=== PATIENT | male | born 1945 | race Caucasian/White ===

== ENCOUNTER 2017-11-03 08:42 | Day surgery (SDC) | payer OTHER ==
[2017-11-03] MEDS ORDERED: diphenhydrAMINE 25 MG CAP PO ONE ×2 (08:45→09:08)
[2017-11-03] MEDS ORDERED: FAMOTIDINE 20 MG TAB PO ONE (08:45)
[2017-11-03] MEDS ORDERED: NS 1,000 ML IV ONE (08:45)
[2017-11-03] MEDS ORDERED: DIAZEPAM 5 MG TAB PO ONE (08:45)
--- NOTE | 2017-11-03 09:04 | CPEKG ---
Heart Rate: 68 RR Interval: 882 P-R Interval: 200 QRSD Interval: 88 QT Interval: 400 QTC Interval: 426 P Canadian: 19 QRS Canadian: 25 T Wave Canadian: 78 EKG Severity - NORMAL ECG - EKG Impression: SINUS RHYTHM Electronically Signed By: Jensen Cornejo 04-Nov-2017 07:37:47
[2017-11-03] MEDS ORDERED: FAMOTIDINE 20 MG TAB ONE (09:08)
[2017-11-03] MEDS ORDERED: DIAZEPAM 5 MG TAB ONE (09:09)
[2017-11-03] MEDS ORDERED: ASPIRIN EC 325 MG TAB PO ONE (09:09)
[2017-11-03 09:19] LABS: PLATELET COUNT 233 10^3/uL (150-400)
[2017-11-03 09:28] LABS: INR 1.03 (0.83-1.16); PROTIME(PATIENT) 13.7 SEC (12.0-15.0)
[2017-11-03] MEDS ORDERED: LIDOCAINE 1% 300 MG/30 ML SDV ONE (10:10)
--- NOTE | 2017-11-03 10:10 | PDHPUP ---
History & Physical Update H&P update statement: This history and physical update is based on an assessment of the patient which was completed after admission or registration (within 24 hours), but prior to the surgery/procedure. H&P update: H&P reviewed & patient examined, no change in patient's condition since H&P completed
--- NOTE | 2017-11-03 10:10 | PDPROPOC ---
Sedation Plan of Care Sedation Plan of Care: vital signs stable, mental status noted, patient educated of risks, benefits, alternatives, patient can tolerate sedation ASA Classification: ASA 2 Planned drugs: fentanyl, midazolam Mallampati Score: Class 2 Mallampati Reference Image: Patient passed 3-3-2 rule?: Yes
[2017-11-03] MEDS ORDERED: MIDAZOLAM 2 MG/2 ML VIAL ONE (10:11)
[2017-11-03] MEDS ORDERED: IOPAMIDOL (ISOVUE-370) 150 ML BTL IV ONE (10:11)
[2017-11-03] MEDS ORDERED: fentaNYL 100 MCG/2 ML INJ ONE (10:11)
[2017-11-03] MEDS ORDERED: OXYCODONE/APAP 5/325 TAB PO PRN (11:02)
[2017-11-03] MEDS ORDERED: NITROGLYCERIN 0.4 MG BTL SL PRN (11:02)
[2017-11-03] MEDS ORDERED: ONDANSETRON 4 MG/2 ML VIAL IVP PRN (11:02)
[2017-11-03] MEDS ORDERED: ATROPINE SULFATE 1 MG/10 ML SYR IVP PRN (11:02)
[2017-11-03] MEDS ORDERED: HYDROCODONE/APAP 5/325 TAB PO PRN (11:02)
--- NOTE | 2017-11-03 11:07 | PDDXCAT ---
Diagnostic Cath Note - . Date: 11/03/17 [employer]: Lisette Indication: CCC Class III and IV angina on medical treatment - Procedure Access: right groin Procedure: left heart catheterization, coronary angiography, left ventriculogram - Materials Left Heart Cath size: 6F Left Heart Cath materials: standard multipack (JL4, JR4, pigtail) - Findings-Left Heart Catheterization LM: Short, bifurcation into the LAD and LCX. No luminal irregularities were noted. LAD: Medium diameter vessel with two notable diagonals. D1 with patent stent ( likely the 'principal' of the diagonals noted). Mid LAD between D1/D2 with widely patent stents (no more than 10% luminal irregularties noted). Distal LAD was grossly normal. LCX: Small LCX system. There were two OMs noted. Both are relatively small vessels. No clear luminal irregularities were noted. RCA: Medium sized vessel with supply into the PDA/AYDEE system. Moderate, proximal calcification noted, without critical luminal irregularities appreciated. EDP: 8 mm Hg LVEF: 60% Wall motion: normal Complications: none Estimated blood loss: <50ml Closure method: Angioseal Assessment: 72 y/o male with history of seven stents to the prox/mid LAD and D1 with symptoms that the patient had prior to interventions in the past. Angiography with widely patent LAD/Diag stents. Normal LVEF. Mild MR by LV gram. Plan: Aggressive med management. Intervention: none
== END 2017-11-03 15:00 | disposition home or self-care (01) ==
LOC: FCATH 08:42
PROVIDERS: ATTEND Internal Medicine Cardiovascular Disease
PROC: 4A023N7 Measurement of Cardiac Sampling and Pressure, Left Heart, Percutaneous Approach (ICD-10-PCS; principal; 2017-11-03)
PROC: B2111ZZ Fluoroscopy of Multiple Coronary Arteries using Low Osmolar Contrast (ICD-10-PCS; principal; 2017-11-03)
PROC: B2151ZZ Fluoroscopy of Left Heart using Low Osmolar Contrast (ICD-10-PCS; principal; 2017-11-03)
DX: R07.9 Chest pain, unspecified (principal); I25.10 Atherosclerotic heart disease of native coronary artery without angina pectoris; I11.9 Hypertensive heart disease without heart failure; Z95.5 Presence of coronary angioplasty implant and graft
CPT/HCPCS: C1760; J1644; J2250; J3010; Q9967

== ENCOUNTER 2018-05-22 11:29 | Day surgery (SDC) | payer OTHER ==
[2018-05-22] MEDS ORDERED: LR 1,000 ML IV ONE (12:07)
--- NOTE | 2018-05-22 13:12 | PDGENHP ---
History & Physical Chief Complaint: diverticulitis History of Present Illness: 72 year old male presents for evaluation of abdominal pain/diverticulitis Pertinent Past, Social, Family History: PMHx: CAD with stents Relevant Physical Exam: HEENT: anicteric. CV: RRR +s1s2. Lungs: CTAB. Abd: soft, nt, + bs Cardiorespiratory Assessment: ASA 3
[2018-05-22] MEDS ORDERED: NS 500 ML IV SCH ×2 (13:15→14:15)
[2018-05-22] MEDS ORDERED: LIDOCAINE 2% 5 ML SDV ONE (13:21)
[2018-05-22] MEDS ORDERED: PROPOFOL/EMULSION 500 MG/50 ML BOTTLE IV ONE (13:21)
[2018-05-22] MEDS ORDERED: MIDAZOLAM 2 MG/2 ML VIAL ONE (13:21)
--- NOTE | 2018-05-22 14:03 | PDANEPAE ---
ANE History of Present Illness colonoscopy ANE Past Medical History - Cardiovascular History Hx Hypertension: Yes Hx Arrhythmias: No Hx Chest Pain: Yes Hx Coronary Artery / Peripheral Vascular Disease: Yes Hx CHF / Valvular Disease: No Hx Palpitations: No Cardiovascular History Comment: htn. hyperlipidemia. hx of HI. cad with stents x8. followed by [facility] - Pulmonary History Hx COPD: No Hx Asthma/Reactive Airway Disease: Yes Hx Recent Upper Respiratory Infection: No Hx Oxygen in Use at Home: No Hx Sleep Apnea: No Sleep Apnea Screening Result - Last Documented: Positive Pulmonary History Comment: alia triggers. asthma is triggered when he shovels snow - Neurologic History Hx Cerebrovascular Accident: No Hx Seizures: No Hx Dementia: No - Endocrine History Hx Diabetes: No Hypothyroid: No Hyperthyroid: No Obesity: no Endocrine History Comment: hyperthyroidism- when he was eating lots of soy, currently no issues - Renal History Hx Renal Disorders: Yes Renal History Comment: hx of kidney stones with spicy meals - Liver History Hx Hepatic Disorders: No - Neurological & Psychiatric Hx Hx Neurological and Psychiatric Disorders: No - Cancer History Hx Cancer: No - Congenital Disorder History Hx Congenital Disorders: No - GI History GERD: mild Hx Gastrointestinal Disorders: Yes Gastrointestinal History Comment: GERD - Other Health History Other Health History: wears glasses. bilateral hearing aides- doesn't wear that often - Chronic Pain History Chronic Pain: No - Surgical History Prior Surgeries: cataracts. cardiac stents x8 ANE Review of Systems Review of Systems: - Exercise capacity Exercise capacity: >=4 METS METS (RN): 4 METS ANE Patient History - Allergies Allergies/Adverse Reactions: atorvastatin [From Lipitor] Allergy (Verified 05/09/18 10:52) "JAW PAIN" azithromycin Allergy (Verified 05/22/18 12:14) clarithromycin Allergy (Verified 05/22/18 12:14) erythromycin base Allergy (Verified 05/22/18 12:14) metoprolol Allergy (Verified 05/09/18 10:52) Rash nabumetone Allergy (Verified 05/09/18 10:52) "CHEST PAIN/BLOOD CLOT" brazil nut Allergy (Uncoded 05/09/18 10:52) - Home Medications Home Medications: Aspirin [Aspirin 81mg (*)] 11/02/17 [Last Taken 05/21/18] Atenolol [Tenormin 25 mg (*)] 11/02/17 [Last Taken 05/22/18] Clopidogrel Bisulfate [Plavix (*)] 11/02/17 [Last Taken 05/16/18] Lisinopril [Zestril 5 mg (*)] 11/02/17 [Last Taken 05/22/18] Nitroglycerin [Nitrostat 0.4 mg (*)] 11/02/17 [Last Taken 2 Months Ago ~] Ranolazine [RANEXA 500mg (RX)] BID 11/02/17 [Last Taken 05/22/18] Rosuvastatin Calcium [Crestor 20mg (*)] 11/02/17 [Last Taken 05/20/18] amLODIPine BESYLATE [Norvasc 2.5 mg (*)] HS 11/02/17 [Last Taken 05/21/18] - NPO status NPO Since - Liquids (Date): 05/22/18 NPO Since - Liquids (Time): 09:37 NPO Since - Solids (Date): 05/21/18 NPO Since - Solids (Time): 09:00 - Smoking Hx Smoking Status: Never smoked - Family Anes Hx Family Hx Anesthesia Complications: none ANE Labs/Vital Signs - Vital Signs Blood Pressure: 109/82 Heart Rate: 65 Respiratory Rate: 14 O2 Sat (%): 93 Height: 170.18 cm Weight: 68.039 kg ANE Physical Exam - Airway Mallampati Score: Class 2 Mouth exam: normal dental/mouth exam - Pulmonary Pulmonary: no respiratory distress - Cardiovascular Cardiovascular: regular rate and rhythym - ASA Status ASA Status: II ANE Anesthesia Plan Anesthesia Plan: GA with mask, MAC
[2018-05-22] MEDS ORDERED: fentaNYL 100 MCG/2 ML INJ IVP PRN (14:19)
[2018-05-22] MEDS ORDERED: ONDANSETRON 4 MG/2 ML VIAL IVP PRN (14:19)
[2018-05-22] MEDS ORDERED: ALBUTEROL 3 ML DEYVIAL IH PRN (14:19)
[2018-05-22] MEDS ORDERED: NALOXONE HCL 0.4 MG/ML INJ IVP PRN (14:19)
[2018-05-22] MEDS ORDERED: LR 500 ML IV PRN (14:19)
--- NOTE | 2018-05-22 14:54 | POSTANESTH ---
Post Anesthetic Evaluation Cardiovascular Status: Normal, Stable Respiratory Status: Normal, Stable Level of Consciousness/Mental Status: Can Participate in Eval, Mildly Sleepy, Arousable Pain Control: Adequate, Prn Tx Ordered Nausea/Vomiting Control: Adequate, Prn Tx Ordered Complications Possibly Related to Anesthesia: None Noted
--- NOTE | 2018-05-22 15:40 | GIREPORT ---
[facility] Surgical Services - Endoscopy Department Patient Name: Cal Murphy Procedure Date: 05/22/2018 1:50 PM Patient Type: Outpatient Attending MD/ ER Physician: Luis Asif MD Procedure: Colonoscopy Indications: Screening for colorectal malignant neoplasm Patient Profile: 72 year old female presents for screening colonoscopy. Providers: Luis Asif MD Medicines: Monitored Anesthesia Care Complications: No immediate complications. Estimated blood loss: Minimal. Description of Procedure: After obtaining informed consent, the scope was passed under direct vis ion. Throughout the procedure, the patient's blood pressure, pulse, and oxyg en saturations were monitored continuously. The Colonoscope with irrigatio n channel was introduced through the anus and advanced to the cecum, identified by appendiceal orifice and ileocecal valve. The colonoscopy was performed without difficulty. The patient tolerated the procedure well. The quality of the bowel preparation was good. The ileocecal valve, appendi ceal orifice, and rectum were photographed. Findings: The perianal and digital rectal examinations were normal. Pertinent negatives include no palpable rectal lesions. Hemorrhoids were found on perianal exam. A 3 mm polyp was found in the cecum. The polyp was sessile. The polyp w as removed with a cold snare. Resection and retrieval were complete. A 2 mm polyp was found in the cecum. The polyp was sessile. Estimated Blood Loss: Estimated blood loss was minimal. Post Op Diagnosis: - Hemorrhoids found on perianal exam. - One 3 mm polyp in the cecum, removed with a cold snare. Resected and retrieved. - One 2 mm polyp in the cecum. Recommendation: - Discharge patient to home (with escort). - Resume previous diet. - Continue present medications. - Await pathology results. - Repeat colonoscopy in 5-10 years for surveillance based on pathology results (5 years if adenoma) - Use fiber, for example Citrucel, Fibercon, Konsyl or Metamucil. - Thank you for allowing me to participate in the care of your patient. Attending Participation: I personally performed the entire procedure. Luis Asif MD Luis Asif MD 05/22/2018 3:40:35 PM This report has been signed electronicallyLuis Asif MD Number of Addenda: 0 Note Initiated On: 05/22/2018 1:50 PM Total Procedure Duration Time 0 hours 29 minutes 46 seconds [email or web address]
[2018-05-22 17:23] VITALS: BP 110/61
== END 2018-05-22 17:20 | disposition home or self-care (01) ==
LOC: FSGY 11:29
PROVIDERS: ATTEND Internal Medicine Gastroenterology
PROC: 0DBH8ZX Excision of Cecum, Via Natural or Artificial Opening Endoscopic, Diagnostic (ICD-10-PCS; principal; 2018-05-22 13:15)
DX: Z12.11 Encounter for screening for malignant neoplasm of colon (principal); K63.5 Polyp of colon; K64.8 Other hemorrhoids; I25.10 Atherosclerotic heart disease of native coronary artery without angina pectoris; I10 Essential (primary) hypertension; E78.5 Hyperlipidemia, unspecified; I25.2 Old myocardial infarction; J45.909 Unspecified asthma, uncomplicated; K21.9 Gastro-esophageal reflux disease without esophagitis; Z95.5 Presence of coronary angioplasty implant and graft
CPT/HCPCS: J2250; J2704